=== PATIENT | male | born 2000 | race Two or more races ===

== ENCOUNTER 2022-08-21 19:04 | Emergency (ER) | payer OTHER ==
[~2022-08-21] VITALS: Ht 182.9 cm; Wt 131.8 kg
[2022-08-21 20:05] LABS: COVID AG,FIA SOURCE NASAL SWAB
[2022-08-21 20:20] LABS: RAPID GROUP A STREP NEGATIVE (NEGATIVE)
[2022-08-21 20:29] LABS: INFLUENZA TYPE A NEGATIVE FOR TYPE A (NEGATIVE); INFLUENZA TYPE B NEGATIVE FOR TYPE B (NEGATIVE)
[2022-08-21] MEDS ORDERED: IBUPROFEN 600 MG TABLET PO ONE (20:45)
[2022-08-21] MEDS ORDERED: ACETAMINOPHEN 500 MG TABLET PO ONE (20:45)
[2022-08-21 21:22] LABS: BASOPHILS % (AUTO) 0.4 % (0.0-2.0); EOSINOPHILS % (AUTO) 0.1 % (1.0-6.0); HEMATOCRIT 44.1 % (41-53); HEMOGLOBIN 15.4 g/dL (13.5-17.5); LYMPHOCYTES # (AUTO) 1.1 K/uL (1.0-4.8); LYMPHOCYTES % (AUTO) 15.7 % (22.0-44.0); MEAN CORPUSCULAR HEMOGLOBIN 28.4 pg (26.0-34.0); MEAN CORPUSCULAR VOLUME 81 fL (80-100); MONOCYTES # (AUTO) 0.8 K/uL (0.1-1.0); MONOCYTES % (AUTO) 10.6 % (2.0-9.0); NEUTROPHILS # (AUTO) 5.2 K/uL (1.8-7.7); NEUTROPHILS % (AUTO) 73.2 % (40.0-70.0); PLATELET COUNT (AUTO) 138 K/uL (150-450); RED BLOOD CELL COUNT(AUTO) 5.44 MIL/uL (4.50-5.90); RED CELL DISTRIBUTION WIDTH 13.9 % (11.5-14.5)
[2022-08-21 21:30] LABS: ANION GAP 9 mmol/L (8-16); CARBON DIOXIDE 25 mmol/L (22-29); CHLORIDE 102 mmol/L (98-107); CREATININE 1.04 mg/dL (0.60-1.30); GLOMERULAR FILTR. RATE CALC > 60 mL/min (>60); GLUCOSE,RANDOM 104 mg/dL (70-110); POTASSIUM 3.9 mmol/L (3.5-5.1); SODIUM SERUM 136 mmol/L (136-145); UREA NITROGEN, BLOOD 11 mg/dL (7-18)
[2022-08-21] MEDS ORDERED: IOHEXOL 350 MG/ML 100 ML VIAL ONE (21:59)
[2022-08-21] MEDS ORDERED: SODIUM CHLORIDE 0.9% 100 ML ONE (21:59)
[2022-08-21] MEDS ORDERED: IBUP-2070 PO (22:59)
[2022-08-21] MEDS ORDERED: DEXAMETHASONE SOD PHOS 4 MG/ML VIAL IVP ONE (23:00)
[2022-08-21] MEDS ORDERED: OXYMETAZOLINE HCL 0.05% 15 ML NASAL SPRAY NASAL ONE (23:00)
[2022-08-21 23:37] VITALS: BP 135/69
== END 2022-08-21 23:45 | disposition home or self-care (01) ==
LOC: EMS 19:11
DX: J06.9 Acute upper respiratory infection, unspecified (principal); Z20.822 Contact with and (suspected) exposure to COVID-19
CPT/HCPCS: 99285; 96374; 70491; 71045; 87426; 80048; 85025; 87430; 87804; 36415; J1100; Q9967; J7050